=== PATIENT | male | born 1995 | race African-American/Black ===

== ENCOUNTER 2018-02-18 08:53 | Day surgery (SDC) | payer OTHER ==
[2018-02-14 10:15] LABS: BASOPHILS # (AUTO) 0.2 K/uL (0.00-0.22); BASOPHILS % (AUTO) 3.4 % (0.0-2.0); EOSINOPHILS # (AUTO) 0.1 K/uL (0-0.4); EOSINOPHILS % (AUTO) 1.8 % (0.0-4.0); HEMATOCRIT 45.7 % (36-52); HEMOGLOBIN 14.8 g/dL (12.0-18.0); LYMPHOCYTES % (AUTO) 14.7 % (20.5-51.1); MEAN CORPUSCULAR HEMOGLOBIN 28 pg (27-31); MEAN CORPUSCULAR HGB CONC 32 g/dL (33-37); MEAN CORPUSCULAR VOLUME 86 fL (80-94); MONOCYTES # (AUTO) 0.8 K/uL (0.8-1.0); MONOCYTES % (AUTO) 11.9 % (1.7-9.3); NEUTROPHILS # (AUTO) 4.9 K/uL (1.8-7.7); NEUTROPHILS % (AUTO) 68.2 % (42.2-75.2); PLATELET COUNT (AUTO) 160 K/uL (140-450); RED BLOOD CELL COUNT(AUTO) 5.32 MIL/uL (4.20-6.10); RED CELL DISTRIBUTION WIDTH 11.5 % (11.6-13.7)
[2018-02-14 10:21] LABS: ANION GAP 9.9 (8-16); CARBON DIOXIDE 30.4 mmol/L (21-32); CREATININE 0.9 mg/dL (0.7-1.3); POTASSIUM 4.3 mmol/L (3.5-5.1)
[~2018-02-18] VITALS: Ht 182.9 cm; Wt 86.6 kg
[2018-02-18] MEDS ORDERED: PROPOFOL 200 MG/20 ML VIAL IV ONE (10:46)
[2018-02-18] MEDS ORDERED: fentaNYL 0.05 MG/ML VIAL ONE (11:01)
[2018-02-18] MEDS ORDERED: MIDAZOLAM 2 MG/2 ML VIAL ONE (11:01)
[2018-02-18] MEDS ORDERED: MORPHINE SULFATE 4 MG/ML SYR ONE (11:01)
[2018-02-18] MEDS ORDERED: MORPHINE SULFATE 2 MG/ML SYR IVP PRN ×3 (11:30→12:00)
[2018-02-18] MEDS ORDERED: METOCLOPRAMIDE 10 MG/2 ML INJ VIAL IVP PRN ×2 (11:30)
[2018-02-18] MEDS ORDERED: MORPHINE SULFATE 4 MG/ML SYR IVP PRN ×4 (11:30)
[2018-02-18] MEDS ORDERED: MIDAZOLAM 2 MG/2 ML VIAL IV ONE (11:30)
[2018-02-18] MEDS: BUPIVACAINE-MPF 0.25% 30 ML VIAL INJ ONE (11:36)
[2018-02-18] MEDS ORDERED: MIDAZOLAM 2 MG/2 ML VIAL IV SCH (11:52)
[2018-02-18] MEDS ORDERED: MORPHINE SULFATE 4 MG/ML SYR IV PRN (12:00)
[2018-02-18] MEDS ORDERED: HYDROcodone/APAP 5/325 MG 1 TAB TAB PO PRN (12:00)
[2018-02-18] MEDS ORDERED: HYDROmorphone PFS 2 MG/ML SYR IVP PRN (12:00)
[2018-02-18] MEDS ORDERED: ONDANSETRON 4 MG/2 ML VIAL IV PRN (12:00)
== END 2018-02-18 13:10 | disposition home or self-care (01) ==
LOC: MDS 08:53 → MMU 08:54 → MDS 13:10
PROVIDERS: ATTEND Surgery
DX: S80.852A Superficial foreign body, left lower leg, initial encounter (principal); J45.909 Unspecified asthma, uncomplicated; W19.XXXA Unspecified fall, initial encounter; Y93.89 Activity, other specified; Y92.89 Other specified places as the place of occurrence of the external cause; Y99.8 Other external cause status
CPT/HCPCS: 10120; 36415; 71045; 80048; 85025; J0690; J2250; J2270; J2704; J3010; J3490; J7060; J7120